=== PATIENT | male | born 1980 | race Two or more races ===

== ENCOUNTER → 2022-04-14 | Outpatient (CLI) | payer MEDICAID ==
[2022-04-15 07:15] LABS: Urine WBC None Seen /hpf (0 - 3)
[2022-04-15 07:43] LABS: Urine Bacteria NONE SEEN /hpf (None Seen); Urine Blood Negative /uL (Negative); Urine Specific Gravity 1.003 (1.001-1.035)
== END | disposition home or self-care (01) ==
LOC: LAB 07:09
PROVIDERS: ATTEND Urology
DX: N39.0 Urinary tract infection, site not specified (principal)
CPT/HCPCS: 81001; 87086

== ENCOUNTER 2022-12-27 14:00 | Outpatient (CLI) | payer MEDICAID ==
[~2022-12-27] VITALS: Ht 182.9 cm; Wt 113.4 kg
[2022-12-27 14:56] LABS: Basophils # (auto) 0.1 10 ^3/uL (0-0.2); Basophils % (auto) 1.2 % (0.0-2.0); Eosinophils # (auto) 0.1 10 ^3/uL (0-0.8); Eosinophils % (auto) 1.8 % (0.0-7.0); Hematocrit 45.6 % (41.0-53.0); Lymphocytes # (auto) 1.7 10 ^3/uL (0.4-5.4); Mean Corpuscular Hgb Conc. 32.8 g/dL (32.0-36.0); Mean Corpuscular Volume 91.4 fL (80.0-100.0); Monocytes # (auto) 0.7 10 ^3/uL (0-1.3); Neutrophils # (auto) 3.5 10 ^3/uL (1.6-8.6); Nucleated Red Blood Cells % 0.4 %; Red Blood Cells 4.99 10^6/uL (4.5-5.90); Urine Bacteria NONE SEEN /hpf (None Seen); Urine Blood Negative /uL (Negative); Urine Specific Gravity 1.022 (1.001-1.035); Urine WBC <1 /hpf (0 - 3); White Blood Cell 6.2 10^3/uL (4.4-10.8)
[2022-12-27 14:58] LABS: Albumin 3.7 g/dL (3.4-5.0); BUN/Creatinine Ratio 12.7 (10.0-20.0); Calcium 8.6 mg/dL (8.5-10.1); Potassium 3.9 mmol/L (3.5-5.1)
[2022-12-27 15:01] LABS: Bilirubin, Total 0.6 mg/dL (0.2-1.0); Total Protein 7.3 g/dL (6.4-8.2)
[2022-12-27 15:03] LABS: INR 1.08 (0.9-1.15); Partial Thromboplastin Time 29.4 sec (24.6-33.4)
== END 2022-12-27 14:25 | disposition home or self-care (01) ==
LOC: LAB 14:00 → EDSTATUS 12-29 11:44
PROVIDERS: ATTEND Urology
DX: Z01.812 Encounter for preprocedural laboratory examination (principal); I86.1 Scrotal varices
CPT/HCPCS: 36415; 80053; 81001; 85025; 85610; 85730; 87086